=== PATIENT | male | born 1960 | race Asian ===

== ENCOUNTER 2020-09-01 12:32 | Emergency (ER) | payer OTHER ==
[2020-09-01 12:49] VITALS: BP 106/68; PULSE 75; TEMP 98.8; BMI 23.3
[2020-09-01] MEDS ORDERED: IBUPROFEN 600 MG TABLET (FP) PO ONE ×2 (13:23→13:26)
== END 2020-09-01 14:03 | disposition home or self-care (01) ==
LOC: JERFT 12:32
PROC: 2W3QX1Z Immobilization of Right Lower Leg using Splint (ICD-10-PCS; principal; 2020-09-01)
DX: S82.831A Other fracture of upper and lower end of right fibula, initial encounter for closed fracture (principal)
CPT/HCPCS: 29515; 73610-TC-RT-FY; 73630-TC-RT-FY; 99283-25

== ENCOUNTER 2022-07-04 04:34 | Day surgery (SDC) | payer BC, OTHER ==
[2022-06-28 13:24] VITALS: BMI 22.6
[2022-07-04 12:25] VITALS: TEMP 98
[2022-07-04 12:50] VITALS: RESP 18
[2022-07-04 13:00] VITALS: BP 107/64; PULSE 64
== END 2022-07-04 12:58 | disposition home or self-care (01) ==
LOC: JASU-ENDO 04:34
PROVIDERS: ATTEND Internal Medicine Gastroenterology
PROC: 0DJD8ZZ Inspection of Lower Intestinal Tract, Via Natural or Artificial Opening Endoscopic (ICD-10-PCS; principal; 2022-07-04 11:30)
DX: Z12.11 Encounter for screening for malignant neoplasm of colon (principal)